=== PATIENT | female | born 1970 | race Caucasian/White ===

== ENCOUNTER 2016-04-21 21:38 | Emergency (ER) | payer OTHER ==
[~2016-04-21] VITALS: Ht 157.4 cm; Wt 68.0 kg
[~2016-04-21 21:38] MED LIST: TOPAMAX200 MG PO; ULTRACET 325 MG1 TA2 PO; ZITHROMAX Z PA250 MG PO
[2016-04-21 21:43] VITALS: BP 137/67
[2016-04-21 22:08] LABS: HEMATOCRIT 40.4 % (37.0-47.0); HEMOGLOBIN 13.7 g/dl (12.0-16.0); MEAN CELL VOLUME 95.7 fl (81.0-99.0); MEAN CORPUSCULAR HGB 32.5 pg (27.0-31.0); MEAN CORPUSCULAR HGB CONC 33.9 g/dl (33.0-37.0); MEAN PLATELET VOLUME 11.7 fl (9.6-12.3); PLATELET COUNT AUTOMATED 220 10*3/uL (130-400); RED BLOOD COUNT 4.22 10*6/uL (4.10-5.10); RED CELL DISTRI WIDTH 12.6 % (0-14.5); WHITE BLOOD COUNT 11.9 10*3/uL (4.8-10.8)
[2016-04-21 22:20] LABS: MAGNESIUM 2.1 mg/dL (1.5-2.1)
[2016-04-21 22:28] LABS: C-REACTIVE PROTEIN < 0.29 MG/DL (0-0.3)
[2016-04-21 22:33] LABS: ATYPICAL LYMPHS 10 % (0-0); EOSINOPHIL # 0.4 10*3/uL (0-0.4); EOSINOPHILS 3 % (1-4); LYMPHOCYTE # 4.9 10*3/uL (1.3-4.4); MONOCYTE # 0.8 10*3/uL (0.1-1.0); NEUTROPHIL # 5.8 10*3/uL (2.3-7.9); NEUTROPHILS 49 % (47-73); TOTAL CELLS COUNTED 100 #CELLS
[2016-04-21 22:45] LABS: PLATELET SUFFICIENCY NORMAL (NORMAL)
[2016-04-21 23:12] LABS: BILIRUBIN NEGATIVE (NEGATIVE); BLOOD TRACE-INTACT (NEGATIVE); CLARITY SL CLOUDY (CLEAR); COLOR YELLOW (YELLOW); GLUCOSE NEGATIVE (NEGATIVE); KETONE NEGATIVE (NEGATIVE); LEUKO ESTERASE NEGATIVE (NEGATIVE); NITRITE NEGATIVE (NEGATIVE); PROTEIN NEGATIVE (NEGATIVE)
[2016-04-21 23:25] LABS: BACTERIA 4+; RBC 16-20 rbc/hpf (0-2); URINE REFLEX COMMENT YES (NO); WBC 31-40 wbc/hpf (0-5)
[2016-04-22 00:05] LABS: LA>2 REFLEX 2 HR DRAW NOW
[2016-04-22] MEDS ORDERED: PERCOCET 325 MG1 TA2 PO (01:57)
[2016-04-22] MEDS ORDERED: BENTYL10 MG PO (01:57)
[2016-04-22] MEDS ORDERED: MACROBID100 M1 PO (01:58)
[2016-06-08] MEDS ORDERED: CARAFATE1 GM/10 ML PO (23:11)
[2016-06-08] MEDS ORDERED: ZANTAC 150150 MG PO (23:11)
[2016-06-08] MEDS ORDERED: ZOFRAN ODT4 MG SL (23:12)
== END 2016-04-22 02:27 | disposition home or self-care (01) ==
LOC: ED 21:38
PROVIDERS: Emergency Medicine Emergency Medical Services
DX: N39.0 Urinary tract infection, site not specified (principal); F17.200 Nicotine dependence, unspecified, uncomplicated; Z90.49 Acquired absence of other specified parts of digestive tract; Z88.0 Allergy status to penicillin; Z88.6 Allergy status to analgesic agent

== ENCOUNTER → 2019-03-05 | Outpatient (CLI) | payer SELFPAY ==
[~2019-03-05] MED LIST changes: +BENTYL10 MG PO; +CARAFATE1 GM/10 ML PO; +MACROBID100 M1 PO; +PERCOCET 325 MG1 TA2 PO; +ZANTAC 150150 MG PO; +ZOFRAN ODT4 MG SL
== END | disposition home or self-care (01) ==
LOC: RAD 14:02
DX: R76.11 Nonspecific reaction to tuberculin skin test without active tuberculosis (principal)

== ENCOUNTER → 2021-04-27 | Outpatient (CLI) | payer BC | END | disposition home or self-care (01) | LOC: COVID19 16:19 | PROVIDERS: ATTEND Internal Medicine | DX: Z11.52 Encounter for screening for COVID-19 (principal) ==

== ENCOUNTER → 2024-05-25 | Outpatient (CLI) | payer BC ==
[2024-05-25 09:22] LABS: HEMATOCRIT 42.3 % (37.0-47.0); MEAN CELL VOLUME 97.2 fl (81.0-99.0); MEAN CORPUSCULAR HGB 30.6 pg (27.0-31.0); MEAN CORPUSCULAR HGB CONC 31.4 g/dl (33.0-37.0); MEAN PLATELET VOLUME 10.4 fl (9.6-12.3); RED BLOOD COUNT 4.35 10*6/uL (4.10-5.10); RED CELL DISTRI WIDTH 12.7 % (0-14.5); WHITE BLOOD COUNT 5.2 10*3/uL (4.8-10.8)
[2024-05-25 09:49] LABS: ALKALINE PHOSPHATASE 85 U/L (46-116); BUN 9 mg/dl (9-23); CHLORIDE 106 mmol/L (98-107); CHOLESTEROL 166 mg/dL (<200); FREE T4 1.02 ng/dl (0.89-1.76); LDL CHOLESTEROL 91 mg/dL (9-159); POTASSIUM 4.2 mmol/L (3.4-5.1); SGPT/ALT 42 U/L (5-49); TOTAL PROTEIN 7.4 gm/dL (6.0-8.0); TRIGLYCERIDES 110 mg/dl (<150)
[2024-05-25 10:48] LABS: VITAMIN D, 25-HYDROXY 36.6 ng/mL (30-100)
== END | disposition home or self-care (01) ==
LOC: LAB 09:09
PROVIDERS: ATTEND Family Medicine
DX: Z13.220 Encounter for screening for lipoid disorders (principal); F90.0 Attention-deficit hyperactivity disorder, predominantly inattentive type; E55.9 Vitamin D deficiency, unspecified; R53.83 Other fatigue; Z00.00 Encounter for general adult medical examination without abnormal findings; D64.9 Anemia, unspecified

== ENCOUNTER → 2024-09-26 | Outpatient (CLI) | payer BC | END | disposition home or self-care (01) | LOC: MAMMO 09:57 | PROVIDERS: ATTEND Family Medicine | DX: N63.23 Unspecified lump in the left breast, lower outer quadrant (principal) ==

== ENCOUNTER → 2025-02-11 | Outpatient (CLI) | payer BC ==
[2025-02-11 11:05] LABS: MEAN CELL VOLUME 95.6 fl (81.0-99.0); MEAN CORPUSCULAR HGB 30.8 pg (27.0-31.0); MEAN PLATELET VOLUME 10.8 fl (9.6-12.3); NUCLEATED RED BLOOD CELL 0.0 % (0.0-0.0); NUCLEATED RED BLOOD CELL 0.0 10*3/uL (0.0-0.0); PLATELET COUNT AUTOMATED 210.0 10*3/uL (130-400); RED CELL DISTRI WIDTH 12.5 % (0-14.5)
[2025-02-11 11:53] LABS: BUN 8 mg/dl (9-23); SGPT/ALT 53 U/L (5-49)
[2025-02-11 11:58] LABS: VITAMIN D, 25-HYDROXY 31.6 ng/mL (30-100)
== END | disposition home or self-care (01) ==
LOC: LAB 10:46
PROVIDERS: ATTEND Family Medicine
DX: E55.9 Vitamin D deficiency, unspecified (principal); E53.8 Deficiency of other specified B group vitamins; N95.1 Menopausal and female climacteric states

== ENCOUNTER → 2025-03-05 | Outpatient (CLI) | payer BC | END | disposition home or self-care (01) | LOC: US 09:24 | PROVIDERS: ATTEND Family Medicine | DX: K76.0 Fatty (change of) liver, not elsewhere classified (principal); R16.0 Hepatomegaly, not elsewhere classified; R74.01 Elevation of levels of liver transaminase levels; Z90.49 Acquired absence of other specified parts of digestive tract ==

== ENCOUNTER → 2025-03-11 | Outpatient (CLI) | payer BC | END | disposition home or self-care (01) | LOC: LAB 10:23 | PROVIDERS: ATTEND Family Medicine | DX: R16.0 Hepatomegaly, not elsewhere classified (principal); R94.5 Abnormal results of liver function studies; R53.83 Other fatigue ==

== ENCOUNTER → 2025-03-21 | Outpatient (CLI) | payer BC ==
[~2025-03-21] MED LIST changes: +IOHEXOL 300 MG/ML 100 ML VIAL IV ONE
== END | disposition home or self-care (01) ==
LOC: CT 13:46
PROVIDERS: ATTEND Family Medicine
DX: K76.0 Fatty (change of) liver, not elsewhere classified (principal); R16.0 Hepatomegaly, not elsewhere classified; R10.9 Unspecified abdominal pain

== ENCOUNTER → 2025-03-26 | Outpatient (CLI) | payer BC ==
[~2025-03-26] MED LIST changes: -IOHEXOL 300 MG/ML 100 ML VIAL IV ONE
[2025-03-26 11:10] LABS: FREE T4 1.08 ng/dl (0.89-1.76)
[2025-03-27 11:07] LABS: CCP ANTIBODIES IGG/IGA 8 units (0-19)
== END ==
LOC: LAB 09:23
PROVIDERS: ATTEND Family Medicine
DX: M19.042 Primary osteoarthritis, left hand (principal); M19.041 Primary osteoarthritis, right hand; R63.5 Abnormal weight gain; R53.83 Other fatigue; E06.3 Autoimmune thyroiditis; K51.90 Ulcerative colitis, unspecified, without complications